=== PATIENT | female | born 1975 | race Caucasian/White ===

== ENCOUNTER 2021-02-07 10:44 | Emergency (ER) | payer BC ==
[~2021-02-07] VITALS: Ht 170.2 cm; Wt 68.0 kg
[2021-02-07 11:13] LABS: ABSOLUTE NEUTROPHILS 7.3 thou/uL (1.4-8.2); BASOPHILS 0.5 % (0.0-2.0); EOSINOPHILS 0.7 % (0.0-3.0); HEMATOCRIT 42.4 % (37.0-47.0); HEMOGLOBIN 14.1 gm/dL (12.0-15.0); LYMPHOCYTES 14.1 % (24.0-44.0); MCH 30.2 pg (26.0-34.0); MCHC 33.4 g/dL (28.0-37.0); MCV 90.4 fL (80.0-100.0); MONOCYTES 7.8 % (1.0-8.0); PLATELET COUNT 284 thou/uL (150-400); POLYS 76.9 % (36.0-66.0); RBC 4.69 mil/uL (4.20-5.00); RDW 12.8 % (10.5-14.5); WBC 9.5 thou/uL (4.0-11.0)
[2021-02-07] MEDS ORDERED: CLEOCIN HCL300 MG PO (11:56)
[2021-02-07 12:04] VITALS: BP 114/72
== END 2021-02-07 12:03 | disposition home or self-care (01) ==
LOC: ER 10:44
PROVIDERS: Emergency Medicine
DX: K04.7 Periapical abscess without sinus (principal)